=== PATIENT | female | born 1965 | race Caucasian/White ===

== ENCOUNTER 2016-11-18 22:49 | Emergency (ER) | payer OTHER ==
[2016-11-18] MEDS ORDERED: LIDOCAINE 1% 10 ML VIAL INJ ONE (23:04)
[2016-11-18] MEDS ORDERED: POVIDONE IODINE 10 % 15 ML UD TOP ONE (23:04)
[2016-11-18 23:07] VITALS: TEMP 98; O2SAT 98
[2016-11-18] MEDS ORDERED: TETANUS,DIPHTHERIA,PERTUSSIS 1 EA SYG IM ONE (23:33)
--- NOTE | 2016-11-18 23:40 | ED.PDOC ---
History of Present Illness - General Chief Complaint: Laceration Stated Complaint: laceration Time Seen by Provider: 11/18/16 23:37 Source: patient Exam Limitations: no limitations - History of Present Illness Initial Comments: Patient presents with a laceration to the right anterior index finger after getting it tied up with some livestock apparatus. She is in a minimal amount of pain. Small amounts of bleeding. No previous trauma to the area. Timing/Duration: 1-3 hours Severity: mild Improving Factors: nothing Worsening Factors: nothing Associated Symptoms: denies symptoms Allergies/Adverse Reactions: Allergies NO KNOWN ALLERGY Allergy (Verified 11/18/16 23:27) Review of Systems - Review of Systems Constitutional: States: no symptoms reported EENTM: States: no symptoms reported Respiratory: States: no symptoms reported Cardiology: States: no symptoms reported Gastrointestinal/Abdominal: States: no symptoms reported Genitourinary: States: no symptoms reported Musculoskeletal: States: no symptoms reported Skin: States: see HPI Neurological: States: no symptoms reported Endocrine: States: no symptoms reported Hematologic/Lymphatic: States: no symptoms reported Past Medical History (General) - Patient Medical History Hx Seizures: No Hx Stroke: No Hx Dementia: No Hx Asthma: No Hx of COPD: No Hx Cardiac Disorders: No Hx Congestive Heart Failure: No Hx Pacemaker: No Hx Hypertension: No Hx Thyroid Disease: No Hx Diabetes: No Hx Gastroesophageal Reflux: No Hx Renal Disease: No Hx Cancer: No Hx of HIV: No Hx Hepatitis C: No Hx MRSA: No - Vaccination History Hx Tetanus, Diphtheria Vaccination: Yes - yrs ago Hx Influenza Vaccination: No - Social History Hx Tobacco Use: No Hx Alcohol Use: No Hx Substance Use: No Hx Substance Use Treatment: No Hx Depression: No - Female History Patient is a Female of Child Bearing Age (10 -59 yrs old): No Patient : No Family Medical History - Family History Mother Family History: No Known Physical Exam - Physical Exam General Appearance: Alert Respiratory: lungs clear Cardiovascular/Chest: regular rate, rhythm Gastrointestinal/Abdominal: normal bowel sounds, non tender, soft Extremity: other - 2.5 cm U-shaped laceration on the volar surface of the proximal 2nd digit. Hemostatic. Muscle tissue visible. Full sensation over the entire finger. Capillary refill less than 2 seconds over entire finger. Neurologic: no motor/sensory deficits Skin Exam: other - see extremity section Progress - Progress Progress: 11/18/16 23:41 Area was prepped and draped in a sterile fashion. Wound irrigated with 30 cc sterile saline. 4 cc of 1% lidocaine without epinephrine used to gain excellent local anesthesia. 8 interrupted sutures with 4-0 Ethilon placed and excellent wound edge approximation obtained. Area was clean , dry , and hemostatic at the end of the procedure. Tetanus booster administered. Departure - Departure Clinical Impression: Laceration Disposition: Discharge to Home or Self Care Condition: Good Departure Forms: ED Discharge - Pt. Copy, Patient Portal Self Enrollment Diet: resume usual diet Activity: other - Do not use the affected finger until sutures are removed. May use splint for reinforcement.
[2016-11-18 23:53] VITALS: BP 151/79
== END 2016-11-18 23:53 | disposition home or self-care (01) ==
LOC: ER 22:49
DX: S61.210A Laceration without foreign body of right index finger without damage to nail, initial encounter (principal); X58.XXXA Exposure to other specified factors, initial encounter